=== PATIENT | female | born 1985 | race Caucasian/White ===

== ENCOUNTER → 2020-01-17 | Day surgery (SDC) | payer BC | END | disposition home or self-care (01) | LOC: JASU-SURG 08:42 | PROVIDERS: ATTEND Physician Assistant | PROC: 0H9U3ZX Drainage of Left Breast, Percutaneous Approach, Diagnostic (ICD-10-PCS; principal; 2020-01-17) | DX: D24.2 Benign neoplasm of left breast (principal) | CPT/HCPCS: 19083; 87899; 88305-TC; A4648 ==

== ENCOUNTER 2021-07-01 17:28 | Emergency (ER) | payer BC ==
[2021-07-01 17:38] VITALS: BP 138/91; PULSE 94; TEMP 98.2; BMI 28.5
[2021-07-01 19:17] LABS: BASO % 0.3 % (0-2.0); EOS % 0.1 % (0-4.5); HEMATOCRIT 38.8 % (32.4-45.2); HEMOGLOBIN 12.8 GM/dL (10.7-15.3); LYMPH % 17.1 % (8-40); MEAN CELL VOLUME 81.7 fl (80-96); MONO % 5.6 % (3.8-10.2); NEUT % 76.9 % (42.8-82.8); PLATELET COUNT 258 10^3/uL (134-434); RBC 4.75 M/mm3 (3.60-5.2); RDW 14.1 % (11.6-15.6); WHITE BLOOD COUNT 9.8 K/mm3 (4.0-10.0)
[2021-07-01 19:20] LABS: PH,URINE 6.5 (5.0-8.0); URINE APPEARANCE CLEAR; URINE BILIRUBIN NEGATIVE (NEGATIVE); URINE COLOR YELLOW; URINE GLUCOSE (UA) NEGATIVE (NEGATIVE); URINE KETONE NEGATIVE (NEGATIVE); URINE LEUK ESTERASE NEGATIVE (NEGATIVE); URINE NITRITE NEGATIVE (NEGATIVE); URINE PROTEIN NEGATIVE (NEGATIVE); URINE UROBILINOGEN 0.2 mg/dL (0.2-1.0)
[2021-07-01 19:29] LABS: HCG,QUALITATIVE URINE Positive
[2021-07-01 19:40] LABS: ALBUMIN 3.8 g/dl (3.4-5.0); BLOOD UREA NITROGEN 10.3 mg/dL (7-18); CALCIUM 9.3 mg/dL (8.5-10.1)
[2021-07-01 19:43] LABS: CREATININE 0.7 mg/dL (0.55-1.3)
[2021-07-01 19:45] LABS: TOT PROT 7.5 g/dl (6.4-8.2)
[2021-07-01 19:49] LABS: BILIRUBIN,TOTAL 0.2 mg/dL (0.2-1)
== END 2021-07-01 20:32 | disposition home or self-care (01) ==
LOC: JER 17:28
DX: O20.9 Hemorrhage in early pregnancy, unspecified (principal); Z3A.01 Less than 8 weeks gestation of pregnancy
CPT/HCPCS: 36415; 76817-TC; 80053; 81003; 84702; 84703; 85025; 86850; 86900; 86901; 87086; 99284-25

== ENCOUNTER 2021-07-03 09:04 | Emergency (ER) | payer BC ==
[2021-07-03 09:19] VITALS: BP 111/69; PULSE 89; TEMP 98.1; BMI 28.5
== END 2021-07-03 12:39 | disposition home or self-care (01) ==
LOC: JERFT 09:04
DX: O20.0 Threatened abortion (principal); Z3A.01 Less than 8 weeks gestation of pregnancy
CPT/HCPCS: 36415; 76817-TC; 84702; 99284-25

== ENCOUNTER 2021-07-19 17:06 | Emergency (ER) | payer BC ==
[2021-07-19 17:11] VITALS: TEMP 98.1; BMI 28.5
[2021-07-19 18:08] LABS: BASO % 0.6 % (0-2.0); EOS % 0.2 % (0-4.5); HEMATOCRIT 39.7 % (32.4-45.2); HEMOGLOBIN 13.1 GM/dL (10.7-15.3); LYMPH % 15.3 % (8-40); MCH 26.9 pg (25.7-33.7); MEAN CELL VOLUME 81.6 fl (80-96); MEAN PLT VOLUME 7.6 fl (7.5-11.1); MONO % 5.7 % (3.8-10.2); NEUT % 78.2 % (42.8-82.8); PLATELET COUNT 324 10^3/uL (134-434); RBC 4.87 M/mm3 (3.60-5.2); RDW 14.9 % (11.6-15.6); WHITE BLOOD COUNT 12.7 K/mm3 (4.0-10.0)
[2021-07-19 18:13] LABS: EPI CELLS 7 /uL (0-25.1); HYALINE CASTS 0 /uL (0-3.1); PH,URINE 6.5 (5.0-8.0); URINE APPEARANCE CLEAR; URINE BACTERIA 41 /uL (0-1359); URINE BILIRUBIN NEGATIVE (NEGATIVE); URINE COLOR YELLOW; URINE GLUCOSE (UA) NEGATIVE (NEGATIVE); URINE KETONE NEGATIVE (NEGATIVE); URINE LEUK ESTERASE TRACE (NEGATIVE); URINE NITRITE NEGATIVE (NEGATIVE); URINE PROTEIN NEGATIVE (NEGATIVE); URINE RBC 5 /uL (0-23.9); URINE UROBILINOGEN 0.2 mg/dL (0.2-1.0); URINE WBC 7 /uL (0-25.8)
[2021-07-19 18:36] LABS: ALBUMIN 3.7 g/dl (3.4-5.0); BLOOD UREA NITROGEN 8.3 mg/dL (7-18); CALCIUM 9.4 mg/dL (8.5-10.1)
[2021-07-19 18:40] LABS: CREATININE 0.7 mg/dL (0.55-1.3)
[2021-07-19 18:42] LABS: BILIRUBIN,TOTAL 0.4 mg/dL (0.2-1); TOT PROT 7.9 g/dl (6.4-8.2)
[2021-07-19 21:40] VITALS: BP 121/78; PULSE 82
== END 2021-07-19 21:42 | disposition home or self-care (01) ==
LOC: JER 17:06
DX: O26.851 Spotting complicating pregnancy, first trimester (principal); Z3A.08 8 weeks gestation of pregnancy
CPT/HCPCS: 36415; 76817-TC; 80053; 81003; 84702; 85025; 99284-25

== ENCOUNTER 2021-08-14 00:27 | Emergency (ER) | payer BC ==
[2021-08-14 00:59] VITALS: BP 118/70; PULSE 91; TEMP 98.3; BMI 28.5
[2021-08-14 03:35] LABS: EPI CELLS 1 /uL (0-25.1); HYALINE CASTS 0 /uL (0-3.1); PH,URINE 7.5 (5.0-8.0); URINE APPEARANCE CLEAR; URINE BACTERIA 0 /uL (0-1359); URINE BILIRUBIN NEGATIVE (NEGATIVE); URINE COLOR YELLOW; URINE GLUCOSE (UA) NEGATIVE (NEGATIVE); URINE KETONE NEGATIVE (NEGATIVE); URINE LEUK ESTERASE NEGATIVE (NEGATIVE); URINE NITRITE NEGATIVE (NEGATIVE); URINE PROTEIN NEGATIVE (NEGATIVE); URINE RBC 7 /uL (0-23.9); URINE UROBILINOGEN 0.2 mg/dL (0.2-1.0); URINE WBC 1 /uL (0-25.8)
== END 2021-08-14 04:13 | disposition home or self-care (01) ==
LOC: JER 00:27
DX: O20.9 Hemorrhage in early pregnancy, unspecified (principal); Z3A.11 11 weeks gestation of pregnancy
CPT/HCPCS: 76801-TC; 81003; 87086; 99284-25